=== PATIENT | female | born 1940 | race Caucasian/White ===

== ENCOUNTER → 2016-11-02 | Outpatient (CLI) | payer OTHER | LOC: RAD 11:38 | DX: E03.9 Hypothyroidism, unspecified (principal) ==

== ENCOUNTER → 2018-05-29 | Outpatient (CLI) | payer OTHER | LOC: RAD 10:44 | DX: M47.814 Spondylosis without myelopathy or radiculopathy, thoracic region (principal); M51.34 Other intervertebral disc degeneration, thoracic region; R10.9 Unspecified abdominal pain ==

== ENCOUNTER → 2021-01-13 | Outpatient (CLI) | payer OTHER ==
[~2021-01-13] MED LIST: CALCIUM 500 +1 EAC5 PO; COREG6.25 MG PO; DILTIAZEM 24HR240 M1 PO; FLEXERIL PO; HYOSCYAMINE0.125 M1 PO; LYRICA 75 MG CA75 MG PO; ONDANSETRON ODT8 MG PO; PROTONIX40 M1 PO; SYNTHROID88 MC1 PO; TRAMADOL 50 MG50 MG PO; TYLENOL EXTRA500 MG PO
== END ==
LOC: RAD 11:05
PROVIDERS: ATTEND Family Medicine
DX: R05 Cough (principal); M43.8X4 Other specified deforming dorsopathies, thoracic region